=== PATIENT | male | born 1995 | race Caucasian/White ===

== ENCOUNTER 2024-08-15 04:11 | Emergency (ER) | payer BC, OTHER ==
[~2024-08-15] VITALS: Ht 177.8 cm; Wt 103.2 kg
[2024-08-15 04:56] LABS: CALCIUM, TOTAL 9.9 mg/dL (8.8-10.5); CREATININE 2.23 mg/dL (0.60-1.30); POTASSIUM 4.2 mmol/L (3.5-5.1)
[2024-08-15] MEDS: SODIUM CHLORIDE 0.9% 2,000 ML IV ONE (05:01)
[2024-08-15 05:05] LABS: BASOPHILS % (AUTO) 0.3 % (0.0-2.0); EOSINOPHILS % (AUTO) 0.2 % (1.0-6.0); LYMPHOCYTES # (AUTO) 1.1 K/uL (1.0-4.8); LYMPHOCYTES % (AUTO) 9.1 % (22.0-44.0); MEAN CORPUSCULAR HEMOGLOBIN 31.2 pg (26.0-34.0); MEAN CORPUSCULAR VOLUME 92 fL (80-100); MONOCYTES # (AUTO) 0.9 K/uL (0.1-1.0); MONOCYTES % (AUTO) 7.9 % (2.0-9.0); NEUTROPHILS # (AUTO) 9.6 K/uL (1.8-7.7); NEUTROPHILS % (AUTO) 82.5 % (40.0-70.0); PLATELET COUNT (AUTO) 311 K/uL (150-450); RED BLOOD CELL COUNT(AUTO) 6.28 MIL/uL (4.50-5.90); RED CELL DISTRIBUTION WIDTH 13.3 % (11.5-14.5); WHITE BLOOD COUNT (AUTO) 11.6 K/uL (4.5-11.0)
[2024-08-15] MEDS: ONDANSETRON HCL 4 MG/2 ML VIAL IVP ONE (05:07)
[2024-08-15] MEDS: ACETAMINOPHEN 500 MG TABLET PO ONE (05:07)
[2024-08-15] MEDS: KETOROLAC TROMETHAMINE 30 MG/ML VIAL IVP ONE (05:07)
[2024-08-15 05:08] LABS: HEMATOCRIT 57.6 % (41-53); HEMOGLOBIN 19.6 g/dL (13.5-17.5)
[2024-08-15] MEDS: DIPHENOXYLATE/ATROP 2.5-0.025 MG TABLET PO ONE (05:18)
[2024-08-15] MEDS: CIPROFLOXACIN HCL 250 MG TABLET PO ONE (06:44)
[2024-08-15] MEDS: LORazepam 0.5 MG TABLET PO ONE (06:44)
[2024-08-15 07:15] VITALS: BP 103/60; PULSE 89; RESP 17; O2SAT 96
[2024-08-15] MEDS ORDERED: DICY-1 PO (09:48)
== END 2024-08-15 10:00 | disposition home or self-care (01) ==
LOC: EMS 04:16
DX: R11.2 Nausea with vomiting, unspecified (principal); R19.7 Diarrhea, unspecified; F12.90 Cannabis use, unspecified, uncomplicated; F17.210 Nicotine dependence, cigarettes, uncomplicated; Z72.89 Other problems related to lifestyle; Z88.2 Allergy status to sulfonamides
CPT/HCPCS: 99284; 96374; 96361; 96375; 80048; 85025; 36415; J1885; J2405; J7030